=== PATIENT | male | born 1950 | race Caucasian/White ===

== ENCOUNTER → 2020-12-14 | Outpatient (CLI) | payer MEDICARE, OTHER ==
[~2020-12-14] MED LIST: ASPI81TA45 PO; ATOR40TA78 PO; DILT240C81 PO; FINA5TAB4 PO; METO25TA91 PO; VIT1CAPS42 PO
[2020-12-14 10:47] LABS: BASOPHILS % (AUTO) 1 % (0-1); EOSINOPHILS % (AUTO) 3 % (1-7); LYMPHOCYTES % (AUTO) 24 % (22-44); MEAN CORPUSCULAR HEMOGLOBIN 33.9 pg (27.5-34.5); MEAN CORPUSCULAR HGB CONC 33.9 g/dL (33.2-36.2); MEAN PLATELET VOLUME 8.4 fL (7.4-10.4); MONOCYTES % (AUTO) 10 % (2-9); NEUTROPHILS % (AUTO) 62 % (42-75); PLATELET COUNT 226 x10^3/uL (130-400); RED BLOOD COUNT 4.71 x10^6/uL (4.38-5.82); RED CELL DISTRIBUTION WIDTH 13.3 % (9.4-14.8)
[2020-12-14 10:58] LABS: ALANINE AMINOTRANSFERASE 22 U/L (12-78); ALBUMIN 3.4 g/dL (3.4-5.0); ANION GAP 3 mmol/L (5-15); CALCIUM 8.5 mg/dL (8.5-10.1); CHLORIDE 112 mmol/L (98-107)
[2020-12-14 11:00] LABS: ALKALINE PHOSPHATASE 83 U/L (45-117); BILIRUBIN,TOTAL 0.5 mg/dL (0.2-1.0); TOTAL PROTEIN 6.7 g/dL (6.4-8.2)
== END | disposition home or self-care (01) ==
LOC: STAR 09:59
PROVIDERS: ATTEND Surgery
DX: Z01.818 Encounter for other preprocedural examination (principal)
CPT/HCPCS: 36415; 71046; 80053; 85025; 93005

== ENCOUNTER 2020-12-18 05:25 | Inpatient (IN) | payer MEDICARE, OTHER ==
[~2020-12-18] VITALS: Ht 182.9 cm; Wt 113.5 kg
[2020-12-18] MEDS ORDERED: LACTATED RINGERS 1,000 ML IV SCH (06:00)
[2020-12-18] MEDS ORDERED: CHLORHEXIDINE 15 ML UDC PO ONE (06:00)
[2020-12-18] MEDS ORDERED: CHLORHEXIDINE 15 ML UDC ONE (06:02)
[2020-12-18] MEDS ORDERED: PROTAMINE SULFATE 10 MG/ML, 5ML ONE (06:47)
[2020-12-18] MEDS ORDERED: HEPARIN 5,000 UNITS/ML, 1ML ONE (06:47)
[2020-12-18] MEDS ORDERED: HEPARIN 1,000 UNITS/ML, 10ML ONE (06:47)
[2020-12-18] MEDS ORDERED: THROMBIN 20,000 UNIT VIAL TP ONE (06:47)
[2020-12-18] MEDS ORDERED: MIDAZOLAM 1 MG/ML, 2ML ONE (07:03)
[2020-12-18] MEDS ORDERED: FENTANYL PF 250 MCG/5ML ONE ×3 (07:03→08:52)
[2020-12-18] MEDS ORDERED: METHOCARBAMOL 1,000 MG in DEXTROSE 5% 100 ML IV PRN (07:30)
[2020-12-18] MEDS ORDERED: LABETALOL 5MG/ML, 20ML IV PRN (07:30)
[2020-12-18] MEDS ORDERED: HALOPERIDOL 5 MG/ML IV PRN (07:30)
[2020-12-18] MEDS ORDERED: hydrALAzine 20 MG/ML, 1ML IV PRN (07:30)
[2020-12-18] MEDS ORDERED: MEPERIDINE/PF 25MG/0.5ML IVPush PRN (07:30)
[2020-12-18] MEDS ORDERED: ONDANSETRON 2MG/ML, 2ML IVPush PRN ×2 (07:30→10:30)
[2020-12-18] MEDS ORDERED: PROMETHAZINE 25 MG/ML, 1ML IVPush PRN (07:30)
[2020-12-18] MEDS ORDERED: LORazepam 2 MG/ML, 1ML IVPush PRN (07:30)
[2020-12-18] MEDS ORDERED: ACETAMINOPHEN 325 MG TABLET PO PRN (07:30)
[2020-12-18] MEDS ORDERED: EPHEDRINE 50 MG/ML, 1ML IVPush PRN (07:30)
[2020-12-18] MEDS ORDERED: HYDROmorphone 1 MG/ML, 1ML INJ IVPush PRN (07:30)
[2020-12-18] MEDS ORDERED: GLYCOPYRROLATE 0.2MG/1ML, 5ML ONE (07:49)
[2020-12-18] MEDS ORDERED: ESMOLOL 100 MG/10 ML ONE (07:49)
[2020-12-18] MEDS ORDERED: ROCURONIUM 10 MG/ML,10ML ONE (07:49)
[2020-12-18] MEDS ORDERED: PROPOFOL 10 MG/ML, 20ML ONE (07:49)
[2020-12-18] MEDS ORDERED: ONDANSETRON 2MG/ML, 2ML ONE (07:49)
[2020-12-18] MEDS ORDERED: DEXAMETHASONE 4 MG/ML, 1ML ONE (07:49)
[2020-12-18] MEDS ORDERED: NEOSTIGMINE 1 MG/ML, 10ML ONE (07:49)
[2020-12-18] MEDS ORDERED: SUCCINYLCHOLINE 20 MG/ML, 10ML ONE (07:49)
[2020-12-18] MEDS ORDERED: morphine SULFATE 10 MG/ML, 1ML IV PRN (10:30)
[2020-12-18] MEDS ORDERED: ACETAMINOPHEN 650 MG/20.3 ML UDC PO PRN (10:30)
[2020-12-18] MEDS: LACTATED RINGERS 1,000 ML IV SCH ×2 (10:30→16:30)
[2020-12-18] MEDS ORDERED: CEFAZOLIN PMX 2GM/50ML 50 ML IVPB SCH (10:30)
[2020-12-18] MEDS: LABETALOL 5MG/ML, 20ML IVPush SCH ×2 (10:30→18:30)
[2020-12-18] MEDS ORDERED: OXYcodone IR 5MG TABLET PO PRN (10:30)
[2020-12-18] MEDS ORDERED: OXYcodone 5 MG/5 ML ORAL.SOL UDC ONE ×2 (10:34→11:19)
[2020-12-18] MEDS ORDERED: ACETAMINOPHEN 650 MG/20.3 ML UDC ONE (10:34)
[2020-12-18] MEDS: OXYcodone 5 MG/5 ML ORAL.SOL UDC PO PRN ×2 (10:35→11:20)
[2020-12-18] MEDS ORDERED: FENTANYL PF 100 MCG/2ML ONE (10:46)
[2020-12-18] MEDS: FENTANYL PF 100 MCG/2ML IV PRN ×2 (10:48→10:53)
[2020-12-18 14:30] VITALS: BP 138/71
[2020-12-18] MEDS: CEFAZOLIN PMX 2GM/50ML 50 ML IVPB SCH (16:31)
[2020-12-18 19:02] VITALS: BP 125/61
[2020-12-18] MEDS ORDERED: ATORVASTATIN 40 MG TABLET PO SCH (21:00)
[2020-12-19 01:45] VITALS: BP 121/61
[2020-12-19] MEDS: CEFAZOLIN PMX 2GM/50ML 50 ML IVPB SCH (01:56)
[2020-12-19] MEDS: LACTATED RINGERS 1,000 ML IV SCH ×2 (01:56→10:01)
[2020-12-19] MEDS: LABETALOL 5MG/ML, 20ML IVPush SCH ×2 (01:56→10:01)
[2020-12-19 04:17] VITALS: BP 118/59
[2020-12-19 05:36] LABS: MEAN CORPUSCULAR HEMOGLOBIN 34.3 pg (27.5-34.5); MEAN CORPUSCULAR HGB CONC 34.1 g/dL (33.2-36.2); MEAN PLATELET VOLUME 8.3 fL (7.4-10.4); PLATELET COUNT 202 x10^3/uL (130-400); RED BLOOD COUNT 4.26 x10^6/uL (4.38-5.82); RED CELL DISTRIBUTION WIDTH 13.1 % (9.4-14.8)
[2020-12-19 05:45] LABS: ANION GAP 4 mmol/L (5-15); CALCIUM 8.2 mg/dL (8.5-10.1); CHLORIDE 105 mmol/L (98-107); CREATININE 0.86 mg/dL (0.7-1.3)
[2020-12-19 06:00] LABS: BAND#(MANUAL) 0.57 x10^3/uL; BANDS%(MANUAL) 3 % (0-7); LYMPH#(MANUAL) 2.27 x10^3/uL (1-3.4); LYMPHS% (MANUAL) 12 % (22-44); MONOS#(MANUAL) 1.13 x10^3/uL (0.3-2.7); MONOS% (MANUAL) 6 % (2-9); SEG#(MANUAL) 14.93 x10^3/uL (1.8-6.8); SEGS% (MANUAL) 79 % (42-75)
[2020-12-19] MEDS ORDERED: ASPIRIN 81 MG TABLET EC PO SCH ×2 (06:00→09:00)
[2020-12-19 06:02] LABS: <RBC MORPHOLOGY> NORMAL
[2020-12-19 06:03] LABS: <PLATELET ESTIMATE> ADEQUATE; <PLT MORPHOLOGY> NORMAL PLT MORPH
[2020-12-19 08:10] VITALS: BP 144/64
[2020-12-19] MEDS ORDERED: FINASTERIDE 5 MG TABLET PO SCH (09:00)
[2020-12-19] MEDS ORDERED: ENOXAPARIN 40 MG/0.4 ML SQ SCH (09:00)
[2020-12-19] MEDS ORDERED: TEMPLATE NON-FORMULARY MED. (Vit C/E/Zn/Coppr/Lutein/Zeaxan** (Preservision Areds 2 Softge PO SCH (09:00)
[2020-12-19] MEDS ORDERED: CLOPIDOGREL 75 MG TABLET PO SCH (09:00)
[2020-12-19] MEDS ORDERED: ATORVASTATIN 40 MG TABLET PO SCH (09:00)
[2020-12-19] MEDS ORDERED: DILTIAZEM 240 MG CAP.ER.24H PO SCH (09:00)
[2020-12-19] MEDS ORDERED: METOPROLOL SUCCINATE 25 MG TAB.ER.24H PO SCH (09:00)
[2020-12-19 13:18] VITALS: BP 122/68
[2020-12-19] MEDS ORDERED: CLOP75TA PO (15:19)
[2020-12-19 16:17] VITALS: BP 118/64
== END 2020-12-19 16:08 | disposition home or self-care (01) | DRG 254 ==
LOC: ORIP 05:25 → 3WST 13:45 → 4NE 12-19 13:52
PROVIDERS: ADMIT Surgery; ATTEND Surgery
PROC: 04CK0ZZ Extirpation of Matter from Right Femoral Artery, Open Approach (ICD-10-PCS; 2020-12-18)
PROC: 041K0JJ Bypass Right Femoral Artery to Left Femoral Artery with Synthetic Substitute, Open Approach (ICD-10-PCS; 2020-12-18)
PROC: 04CL0ZZ Extirpation of Matter from Left Femoral Artery, Open Approach (ICD-10-PCS; principal; 2020-12-18 07:30)
DX: I70.202 Unspecified atherosclerosis of native arteries of extremities, left leg (principal); I77.1 Stricture of artery
CPT/HCPCS: 36415; 80048; 82040; 85025; 86850; 86900; G0378; J0690; J1100; J1644; J1650; J2250; J2405; J2704; J2710; J2720; J3010; C1768; J0330; J7120